=== PATIENT | male | born 1945 | race Caucasian/White ===

== ENCOUNTER 2018-11-26 10:47 | Observation (INO) | payer MEDICARE, OTHER ==
[2018-11-19 14:36] LABS: BASOPHILS % 0.5 % (0.0-1.0); EOSINOPHILS # (AUTO) 0.1 (0.0-0.4); EOSINOPHILS % 1.6 % (0.0-6.0); HEMATOCRIT 39.2 % (38.2-49.6); LYMPHOCYTES # (AUTO) 1.4 (1.0-3.2); LYMPHOCYTES % 23.9 % (18.0-39.1); MEAN CORPUSCULAR HEMOGLOBIN 32.8 pg (28-32); MEAN CORPUSCULAR HGB CONC 33.2 g/dL (31-35); MONOCYTES # (AUTO) 0.5 (0.2-0.8); MONOCYTES % 8.3 % (4.4-11.3); NEUTROPHILS # (AUTO) 3.7 (2.1-6.9); NEUTROPHILS % 65.5 % (38.7-80.0); PLATELET COUNT 206 x10e3/uL (140-360); RED BLOOD COUNT 3.96 x10e6/uL (4.3-5.7); RED CELL DISTRIBUTION WIDTH 12.8 % (11.7-14.4)
--- NOTE | 2018-11-19 14:55 | Diagnostic Imaging Report ---
EXAMINATION: CHEST 2 VIEWS INDICATION: Pre-operative COMPARISON: Chest radiograph of 06/04/2011 FINDINGS: LINES/TUBES:None LUNGS:The lungs are well-inflated. No focal consolidation or pulmonary edema. Scattered bilateral calcified granulomas. PLEURA:No pleural effusion or pneumothorax. MEDIASTINUM:The cardiomediastinal silhouette appears normal in size and shape. Atherosclerotic calcifications of the thoracic aorta. BONES/SOFT TISSUES:No acute osseous injury. Mild degenerative changes of the visualized spine. ABDOMEN:No free air under the diaphragm. IMPRESSION: No focal pneumonia or pulmonary edema. Signed by: Brandee Nichole MD on 11/19/2018 2:52 PM
[2018-11-19 15:00] LABS: ALBUMIN 4.1 g/dL (3.5-5.0); ALBUMIN/GLOBULIN RATIO 1.3 (0.8-2.0); ANION GAP 13.8 mmol/L (8-16); CALCIUM 9.8 mg/dL (8.4-10.2); CREATININE, SERUM 1.5 mg/dL (0.72-1.25); POTASSIUM 4.8 mmol/L (3.5-5.1)
[~2018-11-26] VITALS: Ht 170.2 cm; Wt 94.8 kg
[~2018-11-26 10:47] MED LIST: ASPIRIN81 MG PO; CENTRUM SILVER1 EAC3 PO; CLOPIDOGREL75 MG PO; FLOMAX0.4 MG PO; HYDROCODON-ACE1 EAC9 PO; LEXAPRO10 MG PO; LISINOPRIL20 MG PO; METHOCARBAMOL500 MG PO; PRAVASTATIN SOD40 MG PO; VITAMIN D1000 UNI1 PO
--- OUTSIDE RECORDS SUMMARY | 2018-11-26 10:49 | XMS REPORT ---
Author [facility] Address Unknown Phone Unavailable Care Team Providers Care Retread Technician Name Role Phone RODERICK MARTIN Unavailable Unavailable Payers Payer Name Policy Type Policy Number Effective Date Expiration Date Problems This patient has no known problems. Allergies, Adverse Reactions, Alerts Allergy Name Allergy Type Status Severity Reaction(s) Onset Date Inactive Date Treating Clinician Comments No Known Contrast Allergies DA Active U 2004-04-20 00:00:00 No Known Drug Allergies DA Active U 2004-04-20 00:00:00 No Known Food Allergies DA Active U 2004-04-20 00:00:00 No Known Other Allergies DA Active U 2004-04-20 00:00:00 Medications This patient has no known medications. Results Test Description Test Time Test Comments Text Results Atomic Results Result Comments CHEST 2 VIEWS 2018-11-19 14:51:00 [place] [address] Patient Name: JONATHAN HEALY MR #: [id number] : 1945 Age/Sex: 73/M Req #: [id number] Adm Physician: Ordered by: RODERICK MARTIN MD Report #: [id number] Location: OR Room/Bed: Procedure: [id number] DX/CHEST 2 VIEWS Exam Date: 11/19/18 Exam Time: 1434 REPORT STATUS: Signed EXAMINATION: CHEST 2 VIEWS INDICATION: Pre-operative COMPARISON: Chest radiograph of 06/04/2011 FINDINGS: LINES/TUBES:None LUNGS:The lungs are well-inflated. No focal consolidation or pulmonary edema. Scattered bilateral calcified granulomas. PLEURA:No pleural effusion or pneumothorax. MEDIASTINUM:The cardiomediastinal silhouette appears normal in size and shape. Atherosclerotic calcifications of the thoracic aorta. BONES/SOFT TISSUES:No acute osseous injury. Mild degenerative changes of the visualized spine. ABDOMEN:No free air under the diaphragm. IMPRESSION: No focal pneumonia or pulmonary edema. Signed by: Lisa Nichole MD on 11/19/2018 2:52 PM Dictated By: LISA NICHOLE MD [id number] Transcribed By: RADHA on 11/19/18 1452 COPY TO: RODERICK MARTIN MD
[2018-11-26] MEDS ORDERED: CEFAZOLIN SOD 1 GM/NS 50ML 100 ML IV ONE (12:16)
[2018-11-26] MEDS ORDERED: B&O 60MG R/S 60 MG SUPP PR ONE (13:15)
[2018-11-26] MEDS ORDERED: IOPAMIDOL 300MG/ML 50ML INFUS..BTL IV ONE (13:15)
[2018-11-26] MEDS ORDERED: FENTANYL CITRATE/PF 100MCG/2 ML INJ ONE (13:44)
[2018-11-26] MEDS ORDERED: HYDROMORPHONE 2MG/ML 2 MG/ML ML ONE (16:23)
--- NOTE | 2018-11-26 17:00 | NUR ---
RECEIVED TO RM 107 AAOX3 NO DISTRESS NOTED, DENIES PAIN AT THIS TIME, STEWARD TO BSD WITH PINK URINE NOTED, IVF INFUSING TO R FA 20G NO SS OF INFILTRATION NOTED, NO OTHER CO VOICED CALL LIGHT IN REACH WILL CONTINUE TO MONITOR
[2018-11-26 17:05] VITALS: BP 111/55
[2018-11-26 17:13] VITALS: BP 111/55
[2018-11-26] MEDS ORDERED: B&O 60MG R/S 60 MG SUPP PR PRN (17:30)
[2018-11-26] MEDS ORDERED: HYDROCODONE/APAP 10MG-325MG TAB PO PRN (17:30)
[2018-11-26] MEDS ORDERED: ONDANSETRON HCL 4 MG ORAL DISINTEGRATING TAB PO PRN (17:30)
[2018-11-26] MEDS ORDERED: ROCURONIUM BROMIDE 10 MG/ML 5ML VIAL ONE (17:34)
[2018-11-26] MEDS ORDERED: NEOSTIGMINE 5 MG/5ML SYR ONE (17:34)
[2018-11-26] MEDS ORDERED: EPHEDRINE SULFATE INJ 50 MG/10 ML SYR ONE (17:34)
[2018-11-26] MEDS ORDERED: GLYCOPYRROLATE INJ 1MG/ 5 ML SYR ONE (17:34)
[2018-11-26] MEDS ORDERED: ONDANSETRON HCL INJ 2MG/ML 2ML 2 MG/ML VIAL ONE (17:34)
[2018-11-26] MEDS ORDERED: DEXAMETHASONE SOD PHOS INJ 4 MG/ML VIAL ONE (17:34)
[2018-11-26] MEDS ORDERED: PROPOFOL IV EMULSION 10 MG/ML 20 ML VIAL ONE (17:34)
[2018-11-26] MEDS ORDERED: LIDOCAINE HCL 2% LOCAL INJ 5 ML SDV VIAL INJ ONE (17:34)
[2018-11-26] MEDS ORDERED: SEVOFLURANE INHAL SOLN 250 ML PEN BTL ONE (17:34)
--- NOTE | 2018-11-26 19:00 | NUR ---
Got report from oncoming nurse. Patient in bed. Call light within reach.
--- NOTE | 2018-11-26 19:19 | NUR ---
REPORT GIVEN TO ONCOMING VASCULAR SURGERY PHYSICIAN RN, PT LEFT IN STABLE CONDITION.
[2018-11-26 20:00] VITALS: BP 97/53
[2018-11-26] MEDS: LACTATED RINGER'S 1,000 ML IV SCH (20:05)
[2018-11-26] MEDS: CEPHALEXIN 500 MG CAP PO SCH (20:10)
[2018-11-26] MEDS ORDERED: PRAVASTATIN 20 MG TAB PO SCH (21:00)
--- NOTE | 2018-11-26 21:01 | Operative Report ---
DATE OF PROCEDURE: 11/26/2018 SURGEON: Portillo Martines MD PREOPERATIVE DIAGNOSIS: Benign prostatic hypertrophy. POSTOPERATIVE DIAGNOSIS: Benign prostatic hypertrophy. OPERATION PERFORMED: Cystoscopy and transurethral resection of the prostate with bipolar energy and plasma button. ANESTHESIOLOGIST: Staff. ANESTHESIA: General. 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 Cystoscopy was performed. Finding a high-riding middle bar. Also, finding grade 2 to 3 trabeculation with cellules and saccules. Ureteral orifices were normal at the end of the procedure as well as the trigone. DESCRIPTION OF PROCEDURE: With the patient under satisfactory general anesthesia, the patient was placed in the supine position on the operating table. Legs were placed on stirrups. Genitalia was prepped with Betadine soap and solution, and draped in usual manner. At this point, time-out was obtained and all of us agreed with the procedure as planned. First, the cystoscope was passed without any problems into the bladder, dilating the meatal stenosis as well as the membranous stenosis. Inspection revealed findings as dictated above. At this point, the cystoscope was removed from the bladder and attempts at passing the resectoscope sheath failed. Therefore, dilatation was done with Jose sounds from 22 to 30. After that, the resectoscope was placed in after placing Vaseline gauze and K-Y jelly and placing it into the bladder without any problem. Resection was started at the bladder neck at the 6 o'clock position, extending to the left side and to the verumontanum. Ellik evacuator was used to remove prostatic chips and then the anterior lobe and the right lobe were done with no problems. Bladder neck was done from again from the 6 o'clock position to the verumontanum and the Ellik evacuator was used again to remove prostatic chips from the bladder. From the loop I went to the button electrode and the button was used on both the cutting and fulguration to control bleeding. Once the bleeding was controlled, irrigation was done again, I took another look inside the bladder, the ureteral orifices were normal. Trigone was normal and there was no prostatic pieces inside the bladder or the prostatic fossa. Instruments were removed. The #22-[place] Xavier catheter was then placed into the bladder using the catheter guide. The balloon was insufflated with 35 mL and the bladder was irrigated till the return was clear. The patient was then taken to the recovery room in satisfactory condition. A StatLock was placed to hold the catheter without tension. DISCHARGE INSTRUCTIONS: The patient was given tramadol and Keflex. He was instructed not to take his Plavix or aspirin until I see him in the office. He will be sent to the home the next day if the patient had normal vital signs and was tolerating diet. His catheter will be removed in the office on Saturday. If he had to stay for another day and another night for any other reason, a separate dictation will be made to explain why the patient stayed another day. MD HARDY Kirk/MODL /[id number]
[2018-11-27 04:00] VITALS: BP 119/59
[2018-11-27] MEDS: LACTATED RINGER'S 1,000 ML IV SCH (04:26)
--- NOTE | 2018-11-27 07:16 | NUR ---
Gave report to oncoming nurse. Call light within reach. Patient in bed.
[2018-11-27 07:30] VITALS: BP 125/60
--- NOTE | 2018-11-27 07:30 | NUR ---
REC'D PT AAOX3, SITTING UP IN BED WITH 3L OF O2 VIA NC. RIGHT FA IV INTACT AND PATENT. STEWARD BAG HANGING BELOW BLADDER HOOKED TO BED. CANE AT THE BEDSIDE. SIDE RAILS UPX2, CALL FITZGERALD WITHIN REACH, AND BED IN LOWEST POSITION.
[2018-11-27] MEDS ORDERED: KEFLEX500 MG PO (08:33)
[2018-11-27] MEDS ORDERED: TRAMADOL HCL100 MG PO (08:34)
[2018-11-27] MEDS ORDERED: ULTRAM 50MG50 MG PO (08:36)
[2018-11-27] MEDS ORDERED: LISINOPRIL 20 MG TAB PO SCH (09:00)
[2018-11-27] MEDS ORDERED: NON-FORMULARY MEDICATION (Pravastatin Sodium 20 MG) PO SCH (09:00)
[2018-11-27] MEDS ORDERED: ESCITALOPRAM OXALATE 10 MG TAB PO SCH (09:00)
[2018-11-27] MEDS: CEPHALEXIN 500 MG CAP PO SCH (09:11)
--- NOTE | 2018-11-27 09:11 | NUR ---
PASHA EXPLAINED TO PT, SIGNED BY PT AND PLACED ON CHART COPY TO PT IN CARE TRANSITIONS FOLDER
--- NOTE | 2018-11-27 09:47 | NUR ---
D/C IV TO RIGHT FA WITHOUT ANY COMPLICATIONS. EDUCATED ON LEG BAG AND OVERNIGHT BED ON HOW TO USE AND CHANGE OUT. PROVIDED DISCHARGE PAPERS AND PRESCRIPTIONS AND EXPLAINED TO HIM. PT TO F/U WITH DR. MARTIN SATURDAY MORNING FOR STEWARD REMOVAL. PT ESCORTED VIA WHEELCHAIR TO THE FRONT OF THE HOSPITAL WHERE BROTHER PICKED UP.
[2018-11-27] MEDS ORDERED: SIMVASTATIN 20 MG TAB PO SCH (21:00)
--- NOTE | 2018-12-01 05:00 | Operative Report ---
DATE OF PROCEDURE: SURGEON: Portillo Martines MD PREOPERATIVE DIAGNOSIS: Benign prostatic hyperplasia. POSTOPERATIVE DIAGNOSIS: Benign prostatic hyperplasia. OPERATION PERFORMED: Cystoscopy, transurethral resection of the prostate with bipolar energy and plasma button electrode, vaporization. ANESTHESIOLOGIST: Staff. ANESTHESIA: General. 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 DICTATION ENDS HERE Portillo Martines MD RRG/MODL /[id number]
== END 2018-11-27 09:48 | disposition home or self-care (01) ==
LOC: OR 10:47 → PACU V 16:07 → MED/SURG 16:52
PROVIDERS: ADMIT Urology; ATTEND Urology
DX: N40.1 Benign prostatic hyperplasia with lower urinary tract symptoms (principal); R39.12 Poor urinary stream; R39.13 Splitting of urinary stream; N39.0 Urinary tract infection, site not specified; R31.0 Gross hematuria; Z87.442 Personal history of urinary calculi; F41.9 Anxiety disorder, unspecified; I25.10 Atherosclerotic heart disease of native coronary artery without angina pectoris; Z95.5 Presence of coronary angioplasty implant and graft; I10 Essential (primary) hypertension; E78.5 Hyperlipidemia, unspecified; Z87.891 Personal history of nicotine dependence; Z01.810 Encounter for preprocedural cardiovascular examination; Z01.812 Encounter for preprocedural laboratory examination; Z01.811 Encounter for preprocedural respiratory examination
CPT/HCPCS: 36415; 52601; 71046; 80053; 85025; 87086; 88305; 93005; G0378 ×2; J0690; J1100; J1170; J2001; J2405; J2704; J3010; J3490; J7121 ×2

== ENCOUNTER 2020-02-15 12:23 | Inpatient (IN) | payer MEDICARE ==
[~2020-02-15] VITALS: Ht 170.2 cm; Wt 97.5 kg
[~2020-02-15 12:23] MED LIST changes: +KEFLEX500 MG PO; +TRAMADOL HCL100 MG PO; +ULTRAM 50MG50 MG PO
[2020-02-15 14:40] LABS: BASOPHILS % 0.2 % (0.0-1.0); HEMATOCRIT 40.3 % (38.2-49.6); HEMOGLOBIN 13.7 g/dL (14.0-18.0); LYMPHOCYTES # (AUTO) 0.8 (1.0-3.2); LYMPHOCYTES % 13.3 % (18.0-39.1); MEAN CORPUSCULAR HEMOGLOBIN 33.1 pg (28-32); MEAN CORPUSCULAR VOLUME 97.3 fL (81-99); MONOCYTES # (AUTO) 0.6 (0.2-0.8); MONOCYTES % 9.9 % (4.4-11.3); NEUTROPHILS # (AUTO) 4.4 (2.1-6.9); NEUTROPHILS % 76.3 % (38.7-80.0); PLATELET COUNT 153 x10e3/uL (140-360); RED BLOOD COUNT 4.14 x10e6/uL (4.3-5.7); RED CELL DISTRIBUTION WIDTH 12.8 % (11.7-14.4)
[2020-02-15 15:01] LABS: ALBUMIN 3.9 g/dL (3.5-5.0); ALBUMIN/GLOBULIN RATIO 1.1 (0.8-2.0); ANION GAP 18.4 mmol/L (8-16); CALCIUM 9.5 mg/dL (8.4-10.2); CREATININE, SERUM 1.95 mg/dL (0.72-1.25); POTASSIUM 4.4 mmol/L (3.5-5.1)
[2020-02-15 15:08] LABS: CREATINE KINASE MB 1.2 ng/mL (0-4.3)
[2020-02-15] MEDS ORDERED: ALBUTEROL SULFATE HFA 8GM INHALATION AEROSOL INH PRN (16:30)
[2020-02-15] MEDS ORDERED: AZITHROMYCIN 500MG/NS 250 ML 250 ML IV SCH (16:30)
[2020-02-15] MEDS ORDERED: SODIUM CHLORIDE 0.9% 1000ML 1,000 ML IV STA (16:36)
[2020-02-15] MEDS ORDERED: IOPAMIDOL 370 MG/ML 200 ML INFUS..BTL INJ ONE (17:01)
[2020-02-15] MEDS ORDERED: SODIUM CHLORIDE 0.9% 50ML 50 ML ONE (17:01)
[2020-02-15] MEDS: METHYLPREDNISOLONE SOD SUCC 125 MG/2ML VIAL IV SCH (17:40)
[2020-02-15] MEDS ORDERED: CEFTRIAXONE SOD 1 GM/NS 50 ML 50 ML IV SCH (18:45)
[2020-02-15 19:00] VITALS: BP_SYST 126; BP_SYST 143; BP_DIAS 57; BP_DIAS 91
[2020-02-15] MEDS ORDERED: PLAVIX75 MG PO (19:20)
[2020-02-15] MEDS ORDERED: ASPIRIN81 MG PO (19:20)
[2020-02-15 21:00] VITALS: BP 143/91
[2020-02-15] MEDS ORDERED: ZOLPIDEM TARTRATE 5 MG TAB PO PRN (21:00)
[2020-02-16] VITALS (9 sets, daily range): BP systolic 119–163; BP diastolic 55–105
[2020-02-16] MEDS: METHYLPREDNISOLONE SOD SUCC 125 MG/2ML VIAL IV SCH ×2 (05:38→16:30)
[2020-02-16 06:51] LABS: BASOPHILS % 0.2 % (0.0-1.0); HEMATOCRIT 36.8 % (38.2-49.6); HEMOGLOBIN 12.5 g/dL (14.0-18.0); LYMPHOCYTES # (AUTO) 0.6 (1.0-3.2); LYMPHOCYTES % 12.3 % (18.0-39.1); MEAN CORPUSCULAR HEMOGLOBIN 32.9 pg (28-32); MEAN CORPUSCULAR VOLUME 96.8 fL (81-99); MONOCYTES # (AUTO) 0.4 (0.2-0.8); MONOCYTES % 8.9 % (4.4-11.3); NEUTROPHILS # (AUTO) 3.6 (2.1-6.9); NEUTROPHILS % 78.4 % (38.7-80.0); PLATELET COUNT 148 x10e3/uL (140-360); RED CELL DISTRIBUTION WIDTH 12.5 % (11.7-14.4)
[2020-02-16 07:26] LABS: ALBUMIN 3.3 g/dL (3.5-5.0); ANION GAP 13.8 mmol/L (8-16); CALCIUM 8.6 mg/dL (8.4-10.2); CREATININE, SERUM 1.5 mg/dL (0.72-1.25); POTASSIUM 4.8 mmol/L (3.5-5.1)
[2020-02-16] MEDS ORDERED: REMDESIVIR 200MG/NS 100ML 200 MG IV ONE (14:00)
[2020-02-16] MEDS: AZITHROMYCIN 500MG/NS 250 ML 250 ML IV SCH (16:00)
[2020-02-16] MEDS: ASCORBIC ACID 500 MG TAB PO SCH (16:23)
[2020-02-16] MEDS: ENOXAPARIN 30 MG/0.3 ML SYR SC SCH (16:23)
[2020-02-16] MEDS ORDERED: ENOXAPARIN INJ 80 MG/0.8 ML SYR SC SCH (17:00)
[2020-02-16 17:09] LABS: CREATINE KINASE MB 3.3 ng/mL (0-5.0)
[2020-02-16] MEDS: LISINOPRIL 10 MG TAB PO SCH (17:49)
[2020-02-16 17:58] LABS: CREATINE KINASE MB 2.1 ng/mL (0-4.3)
[2020-02-16] MEDS: PRAVASTATIN 20 MG TAB PO SCH (20:49)
[2020-02-16] MEDS: CEFTRIAXONE SOD 2 GM/NS 100 ML 100 ML IV SCH (20:49)
[2020-02-17] VITALS (7 sets, daily range): BP systolic 120–148; BP diastolic 58–86
[2020-02-17] MEDS: METHYLPREDNISOLONE SOD SUCC 125 MG/2ML VIAL IV SCH (04:36)
[2020-02-17 05:41] LABS: BASOPHILS % 0.1 % (0.0-1.0); HEMATOCRIT 40.2 % (38.2-49.6); HEMOGLOBIN 13.7 g/dL (14.0-18.0); LYMPHOCYTES # (AUTO) 0.9 (1.0-3.2); LYMPHOCYTES % 6.8 % (18.0-39.1); MEAN CORPUSCULAR HEMOGLOBIN 33.3 pg (28-32); MEAN CORPUSCULAR HGB CONC 34.1 g/dL (31-35); MEAN CORPUSCULAR VOLUME 97.6 fL (81-99); MONOCYTES # (AUTO) 0.9 (0.2-0.8); MONOCYTES % 6.4 % (4.4-11.3); NEUTROPHILS # (AUTO) 11.6 (2.1-6.9); NEUTROPHILS % 86.1 % (38.7-80.0); PLATELET COUNT 174 x10e3/uL (140-360); RED BLOOD COUNT 4.12 x10e6/uL (4.3-5.7); RED CELL DISTRIBUTION WIDTH 12.4 % (11.7-14.4)
[2020-02-17 06:01] LABS: ALBUMIN 3.6 g/dL (3.5-5.0); ANION GAP 15.5 mmol/L (8-16); CALCIUM 8.7 mg/dL (8.4-10.2); CREATININE, SERUM 1.4 mg/dL (0.72-1.25); POTASSIUM 4.5 mmol/L (3.5-5.1)
[2020-02-17] MEDS ORDERED: METHYLPREDNISOLONE SOD SUCC 40 MG/ML VIAL 1ML IV SCH ×3 (09:00→17:00)
[2020-02-17] MEDS ORDERED: ASPIRIN 81 MG ENTERIC COATED PO SCH (09:00)
[2020-02-17] MEDS: LISINOPRIL 10 MG TAB PO SCH (09:23)
[2020-02-17] MEDS: ASCORBIC ACID 500 MG TAB PO SCH ×2 (09:23→16:26)
[2020-02-17] MEDS: CLOPIDOGREL BISULFATE 75 MG TAB PO SCH (09:23)
[2020-02-17] MEDS: ZINC SULFATE 50 MG CAP PO SCH (09:23)
[2020-02-17] MEDS: ENOXAPARIN 30 MG/0.3 ML SYR SC SCH ×2 (09:24→16:26)
[2020-02-17] MEDS: REMDESIVIR 100MG/NS 100ML 100 MG IV SCH (13:58)
[2020-02-17] MEDS: AZITHROMYCIN 500MG/NS 250 ML 250 ML IV SCH (16:08)
[2020-02-17] MEDS: DEXAMETHASONE SOD PHOS INJ 4 MG/ML VIAL IV SCH (16:44)
[2020-02-17] MEDS: PRAVASTATIN 20 MG TAB PO SCH (20:17)
[2020-02-17] MEDS: CEFTRIAXONE SOD 2 GM/NS 100 ML 100 ML IV SCH (20:17)
[2020-02-18] VITALS (8 sets, daily range): BP systolic 110–149; BP diastolic 62–90
[2020-02-18 04:54] LABS: BASOPHILS % 0.2 % (0.0-1.0); HEMATOCRIT 38.1 % (38.2-49.6); HEMOGLOBIN 13.2 g/dL (14.0-18.0); LYMPHOCYTES # (AUTO) 0.6 (1.0-3.2); LYMPHOCYTES % 5.6 % (18.0-39.1); MEAN CORPUSCULAR HEMOGLOBIN 34.5 pg (28-32); MEAN CORPUSCULAR HGB CONC 34.6 g/dL (31-35); MEAN CORPUSCULAR VOLUME 99.5 fL (81-99); MONOCYTES # (AUTO) 0.6 (0.2-0.8); NEUTROPHILS # (AUTO) 9.8 (2.1-6.9); NEUTROPHILS % 88.3 % (38.7-80.0); PLATELET COUNT 158 x10e3/uL (140-360); RED BLOOD COUNT 3.83 x10e6/uL (4.3-5.7); RED CELL DISTRIBUTION WIDTH 12.5 % (11.7-14.4)
[2020-02-18 07:02] LABS: ALBUMIN 3.1 g/dL (3.5-5.0); ALBUMIN/GLOBULIN RATIO 0.9 (0.8-2.0); ANION GAP 13.5 mmol/L (8-16); CALCIUM 8.5 mg/dL (8.4-10.2); CREATININE, SERUM 1.2 mg/dL (0.72-1.25); POTASSIUM 4.5 mmol/L (3.5-5.1)
[2020-02-18] MEDS: ENOXAPARIN 30 MG/0.3 ML SYR SC SCH ×2 (08:45→17:32)
[2020-02-18] MEDS: ASCORBIC ACID 500 MG TAB PO SCH ×2 (08:45→17:32)
[2020-02-18] MEDS: LISINOPRIL 10 MG TAB PO SCH (08:45)
[2020-02-18] MEDS: CLOPIDOGREL BISULFATE 75 MG TAB PO SCH (08:45)
[2020-02-18] MEDS: ZINC SULFATE 50 MG CAP PO SCH (08:45)
[2020-02-18 09:43] LABS: BASOPHILS % 0.1 % (0.0-1.0); HEMATOCRIT 39.6 % (38.2-49.6); HEMOGLOBIN 13.4 g/dL (14.0-18.0); LYMPHOCYTES # (AUTO) 0.8 (1.0-3.2); LYMPHOCYTES % 6.7 % (18.0-39.1); MEAN CORPUSCULAR HEMOGLOBIN 32.8 pg (28-32); MEAN CORPUSCULAR HGB CONC 33.8 g/dL (31-35); MEAN CORPUSCULAR VOLUME 97.1 fL (81-99); MONOCYTES # (AUTO) 0.6 (0.2-0.8); MONOCYTES % 5.3 % (4.4-11.3); NEUTROPHILS # (AUTO) 10.2 (2.1-6.9); NEUTROPHILS % 87.3 % (38.7-80.0); PLATELET COUNT 201 x10e3/uL (140-360); RED BLOOD COUNT 4.08 x10e6/uL (4.3-5.7); RED CELL DISTRIBUTION WIDTH 12.6 % (11.7-14.4)
[2020-02-18 09:53] LABS: ALBUMIN 3.4 g/dL (3.5-5.0); ALBUMIN/GLOBULIN RATIO 0.9 (0.8-2.0); ANION GAP 14.5 mmol/L (8-16); CALCIUM 8.7 mg/dL (8.4-10.2); CREATININE, SERUM 1.32 mg/dL (0.72-1.25); POTASSIUM 4.5 mmol/L (3.5-5.1)
[2020-02-18] MEDS: REMDESIVIR 100MG/NS 100ML 100 MG IV SCH (15:53)
[2020-02-18] MEDS: AZITHROMYCIN 500MG/NS 250 ML 250 ML IV SCH (17:32)
[2020-02-18] MEDS: DEXAMETHASONE SOD PHOS INJ 4 MG/ML VIAL IV SCH (17:32)
[2020-02-18] MEDS: CEFTRIAXONE SOD 2 GM/NS 100 ML 100 ML IV SCH (20:10)
[2020-02-18] MEDS: PRAVASTATIN 20 MG TAB PO SCH (20:10)
[2020-02-19] VITALS (8 sets, daily range): BP systolic 132–151; BP diastolic 60–99
[2020-02-19 04:08] LABS: BASOPHILS % 0.1 % (0.0-1.0); HEMOGLOBIN 12.7 g/dL (14.0-18.0); LYMPHOCYTES # (AUTO) 0.6 (1.0-3.2); LYMPHOCYTES % 7.9 % (18.0-39.1); MEAN CORPUSCULAR HEMOGLOBIN 33.5 pg (28-32); MEAN CORPUSCULAR HGB CONC 34.3 g/dL (31-35); MEAN CORPUSCULAR VOLUME 97.6 fL (81-99); MONOCYTES # (AUTO) 0.4 (0.2-0.8); MONOCYTES % 5.1 % (4.4-11.3); NEUTROPHILS # (AUTO) 6.9 (2.1-6.9); NEUTROPHILS % 86.3 % (38.7-80.0); PLATELET COUNT 193 x10e3/uL (140-360); RED BLOOD COUNT 3.79 x10e6/uL (4.3-5.7); RED CELL DISTRIBUTION WIDTH 12.3 % (11.7-14.4)
[2020-02-19 04:27] LABS: ALBUMIN 3.1 g/dL (3.5-5.0); ALBUMIN/GLOBULIN RATIO 0.9 (0.8-2.0); ANION GAP 12.7 mmol/L (8-16); CALCIUM 8.8 mg/dL (8.4-10.2); CREATININE, SERUM 1.3 mg/dL (0.72-1.25); POTASSIUM 4.7 mmol/L (3.5-5.1)
[2020-02-19] MEDS: CLOPIDOGREL BISULFATE 75 MG TAB PO SCH (09:05)
[2020-02-19] MEDS: ZINC SULFATE 50 MG CAP PO SCH (09:05)
[2020-02-19] MEDS: ENOXAPARIN 30 MG/0.3 ML SYR SC SCH ×2 (09:05→16:22)
[2020-02-19] MEDS: LISINOPRIL 10 MG TAB PO SCH (09:05)
[2020-02-19] MEDS: ASCORBIC ACID 500 MG TAB PO SCH ×2 (09:05→16:22)
[2020-02-19] MEDS: REMDESIVIR 100MG/NS 100ML 100 MG IV SCH (13:24)
[2020-02-19] MEDS ORDERED: LEXAPRO20 MG PO (13:55)
[2020-02-19] MEDS: ESCITALOPRAM OXALATE 10 MG TAB PO SCH (14:03)
[2020-02-19] MEDS ORDERED: SODIUM CHLORIDE 0.9% 250ML 250 ML ONE (15:37)
[2020-02-19] MEDS: AZITHROMYCIN 500MG/NS 250 ML 250 ML IV SCH (16:22)
[2020-02-19] MEDS: DEXAMETHASONE SOD PHOS INJ 4 MG/ML VIAL IV SCH (16:22)
[2020-02-19] MEDS: CEFTRIAXONE SOD 2 GM/NS 100 ML 100 ML IV SCH (21:02)
[2020-02-19] MEDS: PRAVASTATIN 20 MG TAB PO SCH (21:02)
[2020-02-20 00:08] VITALS: BP 134/79
[2020-02-20 03:50] LABS: HEMOGLOBIN 12.4 g/dL (14.0-18.0); LYMPHOCYTES # (AUTO) 0.5 (1.0-3.2); LYMPHOCYTES % 9.5 % (18.0-39.1); MEAN CORPUSCULAR HEMOGLOBIN 33.5 pg (28-32); MEAN CORPUSCULAR HGB CONC 34.4 g/dL (31-35); MEAN CORPUSCULAR VOLUME 97.3 fL (81-99); MONOCYTES # (AUTO) 0.4 (0.2-0.8); MONOCYTES % 7.6 % (4.4-11.3); NEUTROPHILS # (AUTO) 4.7 (2.1-6.9); PLATELET COUNT 203 x10e3/uL (140-360); RED CELL DISTRIBUTION WIDTH 12.2 % (11.7-14.4)
[2020-02-20 04:00] VITALS: BP 124/94
[2020-02-20 04:14] LABS: ALBUMIN 2.9 g/dL (3.5-5.0); ALBUMIN/GLOBULIN RATIO 0.9 (0.8-2.0); ANION GAP 12.3 mmol/L (8-16); CALCIUM 8.6 mg/dL (8.4-10.2); CREATININE, SERUM 1.22 mg/dL (0.72-1.25); POTASSIUM 4.3 mmol/L (3.5-5.1)
[2020-02-20] MEDS: LISINOPRIL 10 MG TAB PO SCH (08:21)
[2020-02-20] MEDS: ZINC SULFATE 50 MG CAP PO SCH (08:21)
[2020-02-20] MEDS: ENOXAPARIN 30 MG/0.3 ML SYR SC SCH (08:21)
[2020-02-20] MEDS: CLOPIDOGREL BISULFATE 75 MG TAB PO SCH (08:21)
[2020-02-20] MEDS: ASCORBIC ACID 500 MG TAB PO SCH (08:21)
[2020-02-20] MEDS: ESCITALOPRAM OXALATE 10 MG TAB PO SCH (08:21)
[2020-02-20 08:54] VITALS: BP 149/80
[2020-02-20 09:01] VITALS: BP 149/80
[2020-02-20 12:33] VITALS: BP 135/67
[2020-02-20] MEDS: REMDESIVIR 100MG/NS 100ML 100 MG IV SCH (13:51)
[2020-02-20] MEDS ORDERED: DOCUSATE SODIUM 100 MG CAP PO SCH (17:00)
== END 2020-02-20 16:45 | disposition home or self-care (01) | DRG 177 ==
LOC: ER 12:38 → ERHOLD 14:31 → IMCU 17:58
PROC: 8E0ZXY6 Isolation (ICD-10-PCS; 2020-02-15)
PROC: XW033E5 Introduction of Remdesivir Anti-infective into Peripheral Vein, Percutaneous Approach, New Technology Group 5 (ICD-10-PCS; principal; 2020-02-17)
DX: U07.1 COVID-19 (principal); J12.89 Other viral pneumonia; J96.01 Acute respiratory failure with hypoxia; N18.4 Chronic kidney disease, stage 4 (severe); N17.9 Acute kidney failure, unspecified; J44.1 Chronic obstructive pulmonary disease with (acute) exacerbation; J44.0 Chronic obstructive pulmonary disease with (acute) lower respiratory infection; F41.9 Anxiety disorder, unspecified; E78.00 Pure hypercholesterolemia, unspecified; I12.9 Hypertensive chronic kidney disease with stage 1 through stage 4 chronic kidney disease, or unspecified chronic kidney disease; I25.10 Atherosclerotic heart disease of native coronary artery without angina pectoris; E27.9 Disorder of adrenal gland, unspecified; E88.09 Other disorders of plasma-protein metabolism, not elsewhere classified; D64.9 Anemia, unspecified
CPT/HCPCS: 36415; 71045; 71260; 80053; 82550; 82553; 84484; 85025; 87040; 93306; 99285; J0456; J0696; J1100; J1650; J2920; J2930; J7030; J7050; Q9967; U0002

== ENCOUNTER → 2024-10-13 | Outpatient (REF) | payer MEDICARE ==
[~2024-10-13] MED LIST changes: +LEXAPRO20 MG PO; +PLAVIX75 MG PO
== END ==
LOC: RAD 10:59
PROVIDERS: ATTEND Nurse Practitioner Family
DX: S91.205A Unspecified open wound of left lesser toe(s) with damage to nail, initial encounter (principal)

== ENCOUNTER → 2024-10-16 | Outpatient (REF) | payer MEDICARE | LOC: CT 10:59 | PROVIDERS: ATTEND Nurse Practitioner Family | DX: S91.205D Unspecified open wound of left lesser toe(s) with damage to nail, subsequent encounter (principal) ==

== ENCOUNTER 2024-10-27 10:52 | Outpatient (RCR) | payer MEDICARE | END 2024-11-19 | LOC: WCC 10:52 | PROVIDERS: ATTEND Nurse Practitioner Family | DX: S91.205D Unspecified open wound of left lesser toe(s) with damage to nail, subsequent encounter (principal); B96.89 Other specified bacterial agents as the cause of diseases classified elsewhere ==

== ENCOUNTER 2024-12-04 14:55 | Outpatient (RCR) | payer MEDICARE | END 2024-12-20 | LOC: WCC 14:55 | PROVIDERS: ATTEND Nurse Practitioner Family | DX: S91.205D Unspecified open wound of left lesser toe(s) with damage to nail, subsequent encounter (principal); M86.672 Other chronic osteomyelitis, left ankle and foot; B96.89 Other specified bacterial agents as the cause of diseases classified elsewhere ==